=== PATIENT | female | born 1935 | race Caucasian/White ===

== ENCOUNTER 2017-05-28 15:59 | Emergency (ER) | payer BC, MEDICARE, OTHER ==
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
--- NOTE | 2017-05-28 17:28 | RAD ---
INDICATION: Intracranial injury COMPARISON: None TECHNIQUE: Noncontrast axial source images were acquired from the skull base to the vertex. FINDINGS: Ventricles/sulci: The ventricles and cisterns are normal in size and configuration for age. Brain parenchyma: There is no focal parenchymal finding, evidence of intracranial mass, or intracranial mass effect. INDICATION: Intracranial injury COMPARISON: CT brain March 31, 2012 TECHNIQUE: Noncontrast axial source images were acquired from the skull base to the vertex. FINDINGS: Ventricles/sulci: The ventricles and cisterns are normal in size and configuration for age. Brain parenchyma: There is no focal parenchymal finding, evidence of intracranial mass, or intracranial mass effect. Intracranial hemorrhage:None. Extra-axial spaces: There are no abnormal extra axial fluid collections or evidence of extra-axial mass. Calvarium: There is no calvarial fracture or other calvarial abnormality. Scalp: There is no evidence of scalp or extracalvarial soft tissue abnormality. Paranasal sinuses/mastoid: The paranasal sinuses and mastoid air cells are clear. Other: None. IMPRESSION: NEGATIVE EXAMINATION
--- NOTE | 2017-05-28 17:35 | RAD ---
INDICATION: Neck injury. History of chronic neck pain. COMPARISON: Cervical spine August 11, 2011 TECHNIQUE: Noncontrast axial source images was performed from the skull base to the thoracic inlet. Coronal and and sagittal reformatted images were generated. FINDINGS: Vertebrae: There is no fracture or acute focal bony lesion. There are arthritic changes with advanced degenerative disc disease from C4 through C7. Similar findings were present on earlier radiographs. There is endplate sclerosis and marginal osteophyte formation and multilevel facet arthropathy. Alignment: There is reversal normal cervical lordosis with 2 to 3 mm anterolistheses of C2 on C3 and C3 on C4. These were also present previously. There is a scoliotic deformity of the upper thoracic spine. Central Canal: There are no significant CT abnormalities of the central canal or foramina. MR imaging is a more sensitive method to evaluate the canal and foramina. Intervertebral disc spaces: The disc spaces are maintained. Brain: The visualized brain appears unremarkable. Soft tissues: The visualized soft tissue elements of the neck are unremarkable. The prevertebral soft tissues appear normal. The lung apices are clear. IMPRESSION: ADVANCED MULTILEVEL DEGENERATIVE DISC DISEASE WITH REVERSAL OF THE NORMAL CERVICAL LORDOSIS. THESE FINDINGS APPEAR CHRONIC
[2017-05-28] MEDS ORDERED: Acetaminophen TAB* 325 MG PO ONE (17:55)
[2017-05-28 18:19] VITALS: BP 130/69
== END 2017-05-28 18:21 | disposition home or self-care (01) ==
LOC: ED 15:59
DX: S16.1XXA Strain of muscle, fascia and tendon at neck level, initial encounter (principal); M54.2 Cervicalgia; M50.30 Other cervical disc degeneration, unspecified cervical region; R51 Headache; Z87.891 Personal history of nicotine dependence; M62.838 Other muscle spasm; V49.9XXA Car occupant (driver) (passenger) injured in unspecified traffic accident, initial encounter; Y93.9 Activity, unspecified; Y92.89 Other specified places as the place of occurrence of the external cause
CPT/HCPCS: 70450; 72125; 99282

== ENCOUNTER 2018-04-16 09:37 | Emergency (ER) | payer MEDICARE, BC ==
[2018-04-16] MEDS ORDERED: NS 0.9% 1000 ML* 1,000 ML IV ONE (10:40)
[2018-04-16 11:27] LABS: INR 0.94 (0.77-1.02)
[2018-04-16 11:33] LABS: ABS Basophils 0 10^3/ul (0-0.2); ABS Eosinophils 0 10^3/ul (0-0.6); ABS Lymphocytes 0.8 10^3/ul (1.0-4.8); ABS Monocytes 0.4 10^3/ul (0-0.8); ABS Neutrophils 4.9 10^3/ul (1.5-7.7); ABS Nucleated RBC 0 10^3/ul; Eosinophil % 0.2 % (0-6); Hematocrit 41 % (35-47); Lymphocyte % 13.6 % (25-47); Mean Corpuscular HGB Conc 34 g/dl (31-36); Mean Corpuscular Hemoglobin 33 pg (27-31); Mean Corpuscular Volume 98 fL (80-97); Mean Platelet Volume 7.9 um3 (7.4-10.4); Nucleated Red Blood Cells % 0.1; Platelet Count 227 10^3/ul (150-450); Red Blood Count 4.21 10^6/ul (4.00-5.40); Red Cell Distribution Width 13 % (10.5-15); White Blood Count 6.2 10^3/ul (3.5-10.8)
[2018-04-16 11:35] LABS: EGFR Non-African American 84.3 (>60)
[2018-04-16] MEDS ORDERED: Iohexol 300* (CONTRAST) 10 ML SDV IV ONE (13:00)
--- NOTE | 2018-04-16 13:13 | RAD ---
CLINICAL HISTORY: early satiety,mid abd pain,diarrhea COMPARISON: January 13, 2013 TECHNIQUE: Multiple contiguous axial CT scans were obtained of the abdomen and pelvis after the administration of intravenous contrast. Coronal and sagittal multiplanar reformations are submitted for review. FINDINGS: LUNG BASES: The lung bases are clear. LIVER: The liver is diffusely low in attenuation compared to the spleen. There are no focal hepatic parenchymal masses. Again noted is a hepatic cyst within the inferior margin of the left lobe of liver. BILE DUCTS: There is no intrahepatic or extrahepatic biliary dilatation. GALLBLADDER: The gallbladder is not visualized. Surgical clips are noted in the gallbladder fossa.. PANCREAS: The pancreas is normal, without mass or ductal dilatation. SPLEEN: Normal in size and appearance. UPPER GI TRACT: Evaluation of the gastrointestinal tract is limited by incomplete gastric distention. There is a 2 cm diverticulum of the second stage of the duodenum. There is a small sliding hiatal hernia with questionable mucosal thickening of the cardia of the stomach. SMALL BOWEL AND MESENTERY: The small bowel is normal in contour, course, and caliber. There is no obstruction or dilatation. COLON: There is extensive diverticulosis throughout the entire colon. ADRENALS: Normal bilaterally. KIDNEYS: The kidneys are normal in shape, size, contour, and axis. There is no hydronephrosis or nephrolithiasis. BLADDER: The bladder is smooth in contour. PELVIC ORGANS: The uterus and adnexa are grossly normal for technique. AORTA: There is calcific atherosclerotic disease of the abdominal aorta and its branches, without aneurysmal dilatation IVC: Unremarkable LYMPH NODES: There is no lymphadenopathy by size criteria. ABDOMINAL WALL: There is no evidence for abdominal wall hernia. BONES AND SOFT TISSUES: There is a scoliotic curvature of the spine. Degenerative changes are noted. OTHER: None IMPRESSION: 1. THERE IS MUCOSAL THICKENING OF THE CARDIA OF THE STOMACH. THIS MAY BE AN ARTIFACT OF INCOMPLETE DISTENTION, THOUGH MUCOSAL NEOPLASM MAY GIVE A SIMILAR APPEARANCE. RECOMMEND CONSIDERATION OF CORRELATION WITH DIRECT VISUALIZATION. 2. SLIDING HIATAL HERNIA. 3. DIVERTICULUM OF THE SECOND STAGE OF THE DUODENUM. 4. EXTENSIVE COLONIC DIVERTICULOSIS THROUGHOUT THE ENTIRE COLON
[2018-04-16 13:16] LABS: Urine Appearance Clear; Urine Blood Negative (Negative); Urine Color Yellow; Urine Ketones Negative (Negative); Urine Protein Negative (Negative); Urine Specific Gravity 1.004 (1.010-1.030); Urine Urobilinogen Negative (Negative)
--- NOTE | 2018-04-16 15:06 | ED ---
Ricardo Rea Jade, scribed for Juvenal Fairbanks MD on 04/16/18 at 1033 . Dizziness - HPI Summary HPI Summary: Pt is an 82 y/o female sent from the c/o dizziness. She states she has been feeling dizzy and lightheaded since 4-5 days ago when she was in [place], and recognizes her dizziness could be due to the altitude change. Pt also complains of thirst, stating her mouth feels dry, decreased appetite, and some diarrhea. Pt denies any CP, nausea, runny nose, sore throat, headache, cough, chest congestion, room spinning sensation, hematochezia, or abdominal pain. Pt has had low potassium for a while, and had a blood test 2 weeks ago that revealed high potassium. Over the past 5 months, the pt has lost 10 lbs due to decreased appetite. Pt has chronic numbness and weakness of her ankles and toes dues to sciatic nerve pain, but denies any new numbness or weakness. PMHx sciatic nerve pain, AFib, gallbladder surgery, and hypothyroidism. - History Of Current Complaint Chief Complaint: EDDizziness Stated Complaint: DIZZINESS Time Seen by Provider: 04/16/18 10:10 Hx Obtained From: Patient Onset/Duration: Gradually - 4-5 days ago Timing: Constant Character: Room Spinning, Lightheaded Alleviating Factor(s): Nothing Associated Signs And Symptoms: Positive: Diarrhea, Decreased Oral Intake. Negative: Nausea, Chest Pain - Allergies/Home Medications Allergies/Adverse Reactions: Allergies Allergy/AdvReac Type Severity Reaction Status Date / Time ciprofloxacin [From Cipro] Allergy Unknown Verified 04/16/18 09:49 Reaction Details latex Allergy Rash Verified 04/16/18 09:49 sulfamethoxazole Allergy Shakes Verified 04/16/18 09:49 [From Bactrim] trimethoprim [From Bactrim] Allergy Shakes Verified 04/16/18 09:49 Home Medications: Home Medications Ascorbic Acid TAB* [Vitamin C TAB*] 500 mg PO DAILY 04/16/18 [History Confirmed 04/16/18] Aspirin EC TAB* [Ecotrin EC Low Dose 81 MG*] 81 mg PO DAILY 04/16/18 [History Confirmed 04/16/18] L. Rhamnosus GG/Inulin [Culturelle Probiotics Capsule] 1 cap PO QPM 04/16/18 [ History Confirmed 04/16/18] Levothyroxine TAB* [Synthroid TAB*] 25 mcg PO DAILY 04/16/18 [History Confirmed 04/16/18] Magnesium Oxide TAB* [MagOx 400 TAB*] 250 mg PO DAILY 04/16/18 [History Confirmed 04/16/18] Multivitamins/Minerals TAB* [Theragran/minerals TAB*] 1 tab PO DAILY 04/16/18 [ History Confirmed 04/16/18] West-3 Fatty Acids (Nf) [Fish Oil (NF)] 1,000 mg PO DAILY 04/16/18 [History Confirmed 04/16/18] Zolpidem TAB* [Ambien TAB*] 2.5 mg PO BEDTIME PRN 04/16/18 [History Confirmed ] PMH/Surg Hx/FS Hx/Imm Hx Endocrine/Hematology History: Reports: Hx Thyroid Disease - Hypothyroidism Denies: Hx Anticoagulant Therapy - ASA daily, Hx Diabetes, Hx Anemia Cardiovascular History: Reports: Hx Atrial Fibrillation, Other Cardiovascular Problems/Disorders - ATRIAL FIBRILLATION GI History: Denies: Hx Jaundice Musculoskeletal History: Reports: Hx Arthritis - cervical spine - in PT and receives massage therapy Denies: Hx Rheumatoid Arthritis, Hx Osteoporosis, Hx Scoliosis Neurological History: Reports: Other Neuro Impairments/Disorders - Sciatic nerve pain Denies: Hx Headaches - Cancer History Hx Chemotherapy: No Hx Radiation Therapy: No - Surgical History Surgery Procedure, Year, and Place: lap remedios; dental implants; cardiac ablasion ; loop monitor Infectious Disease History: No Infectious Disease History: Reports: Traveled Outside the [place] in Last 30 Days - ALDO Denies: Hx Clostridium Difficile, Hx Hepatitis, Hx Human Immunodeficiency Virus (HIV), Hx of Known/Suspected MRSA, Hx Shingles, Hx Tuberculosis, Hx Known/ Suspected VRE, Hx Known/Suspected VRSA, History Other Infectious Disease - Family History Known Family History: Negative: Hypertension, Diabetes - Social History Alcohol Use: Occasionally Hx Substance Use: No Substance Use Type: Reports: None Hx Tobacco Use: Yes Smoking Status (MU): Former Smoker Type: Cigarettes Have You Smoked in the Last Year: No Review of Systems Positive: Other - Thirsty ENT: Other - NEGATIVE: chest congestion, runny nose Negative: Sore Throat Negative: Chest Pain Negative: Cough Gastrointestinal: Other - NEGATIVE: hematochezia Positive: Diarrhea, Other - Decreased appetite. Negative: Abdominal Pain, Nausea Neurological: Other - Dizziness, lightheadedness; NEGATIVE: room spinning Positive: Weakness - Chronic - toes and ankles, Numbness - Chronic - toes and ankles. Negative: Headache All Other Systems Reviewed And Are Negative: Yes Physical Exam - Summary Physical Exam Summary: General: well-appearing, no pain distress Skin: warm, color reflects adequate perfusion, dry Head: normal Eyes: EOMI, JAYNE ENT: normal Neck: supple, nontender Respiratory: CTA, breath sounds present Cardiovascular: RRR Abdomen: soft, mild mid-abdominal tenderness Bowel: present Musculoskeletal: normal, strength/ROM intact Neurological: sensory/motor intact, A&O x3 Psychological: affect/mood appropriate Triage Information Reviewed: Yes Vital Signs On Initial Exam: Initial Vitals Temp Pulse Resp BP Pulse Ox 98.5 F 83 16 132/79 99 04/16/18 09:49 04/16/18 09:49 04/16/18 09:49 04/16/18 09:49 04/16/18 09:49 Vital Signs Reviewed: Yes Diagnostics - Vital Signs Vital Signs Temp Pulse Resp BP Pulse Ox 04/16/18 10:14 79 22 123/91 99 04/16/18 09:49 98.5 F 83 16 132/79 99 - Laboratory Lab Results: Lab Results 04/16/18 04/16/18 04/16/18 Range/Units 10:58 10:58 10:58 WBC 6.2 (3.5-10.8) 10^3/ul RBC 4.21 (4.00-5.40) 10^6/ul Hgb 14.0 (12.0-16.0) g/dl Hct 41 (35-47) % MCV 98 H (80-97) fL MCH 33 H (27-31) pg MCHC 34 (31-36) g/dl RDW 13 (10.5-15) % Plt Count 227 (150-450) 10^3/ul MPV 7.9 (7.4-10.4) um3 Neut % (Auto) 79.3 (38-83) % Lymph % (Auto) 13.6 L (25-47) % Dukes % (Auto) 6.2 (0-7) % Eos % (Auto) 0.2 (0-6) % Baso % (Auto) 0.7 (0-2) % Absolute Neuts (auto) 4.9 (1.5-7.7) 10^3/ul Absolute Lymphs (auto) 0.8 L (1.0-4.8) 10^3/ul Absolute Monos (auto) 0.4 (0-0.8) 10^3/ul Absolute Eos (auto) 0 (0-0.6) 10^3/ul Absolute Basos (auto) 0 (0-0.2) 10^3/ul Absolute Nucleated RBC 0 10^3/ul Nucleated RBC % 0.1 INR (Anticoag Therapy) 0.94 (0.77-1.02) APTT 29.5 (26.0-36.3) seconds D-Dimer, Quantitative < 200 (Less Than 230) ng/mL Sodium 140 (135-145) mmol/L Potassium 4.2 (3.5-5.0) mmol/L Chloride 104 (101-111) mmol/L Carbon Dioxide 28 (22-32) mmol/L Anion Gap 8 (2-11) mmol/L BUN 13 (6-24) mg/dL Creatinine 0.67 (0.51-0.95) mg/dL Est GFR ( Amer) 102.0 (>60) Est GFR (Non-Af Amer) 84.3 (>60) BUN/Creatinine Ratio 19.4 (8-20) Glucose 111 H (70-100) mg/dL Lactic Acid (0.5-2.0) mmol/L Calcium 9.7 (8.6-10.3) mg/dL Magnesium 2.0 (1.9-2.7) mg/dL Total Bilirubin 0.80 (0.2-1.0) mg/dL AST 23 (13-39) U/L ALT 17 (7-52) U/L Alkaline Phosphatase 44 (34-104) U/L Total Creatine Kinase 112 (10-223) U/L CK-MB (CK-2) 3.5 (0.6-6.3) ng/mL Troponin I 0.00 (<0.04) ng/mL C-Reactive Protein 4.01 (<8.01) mg/L B-Natriuretic Peptide ( - 100) pg/mL Total Protein 6.8 (6.4-8.9) g/dL Albumin 3.9 (3.2-5.2) g/dL Globulin 2.9 (2-4) g/dL Albumin/Globulin Ratio 1.3 (1-3) Lipase 32 (11.0-82.0) U/L TSH 2.22 (0.34-5.60) mcIU/mL Urine Color Urine Appearance Urine pH (5-9) Ur Specific [place] (1.010-1.030) Urine Protein (Negative) Urine Ketones (Negative) Urine Blood (Negative) Urine Nitrate (Negative) Urine Bilirubin (Negative) Urine Urobilinogen (Negative) Ur Leukocyte Esterase (Negative) Urine WBC (Auto) (Absent) Urine RBC (Auto) (Absent) Ur Squamous Epith Cells (Absent) Urine Bacteria (Absent) Urine Glucose (Negative) Urine Ascorbic Acid (Negative) 04/16/18 04/16/18 04/16/18 Range/Units 10:58 10:58 12:46 WBC (3.5-10.8) 10^3/ul RBC (4.00-5.40) 10^6/ul Hgb (12.0-16.0) g/dl Hct (35-47) % MCV (80-97) fL MCH (27-31) pg MCHC (31-36) g/dl RDW (10.5-15) % Plt Count (150-450) 10^3/ul MPV (7.4-10.4) um3 Neut % (Auto) (38-83) % Lymph % (Auto) (25-47) % Dukes % (Auto) (0-7) % Eos % (Auto) (0-6) % Baso % (Auto) (0-2) % Absolute Neuts (auto) (1.5-7.7) 10^3/ul Absolute Lymphs (auto) (1.0-4.8) 10^3/ul Absolute Monos (auto) (0-0.8) 10^3/ul Absolute Eos (auto) (0-0.6) 10^3/ul Absolute Basos (auto) (0-0.2) 10^3/ul Absolute Nucleated RBC 10^3/ul Nucleated RBC % INR (Anticoag Therapy) (0.77-1.02) APTT (26.0-36.3) seconds D-Dimer, Quantitative (Less Than 230) ng/mL Sodium (135-145) mmol/L Potassium (3.5-5.0) mmol/L Chloride (101-111) mmol/L Carbon Dioxide (22-32) mmol/L Anion Gap (2-11) mmol/L BUN (6-24) mg/dL Creatinine (0.51-0.95) mg/dL Est GFR ( Amer) (>60) Est GFR (Non-Af Amer) (>60) BUN/Creatinine Ratio (8-20) Glucose (70-100) mg/dL Lactic Acid 1.9 (0.5-2.0) mmol/L Calcium (8.6-10.3) mg/dL Magnesium (1.9-2.7) mg/dL Total Bilirubin (0.2-1.0) mg/dL AST (13-39) U/L ALT (7-52) U/L Alkaline Phosphatase (34-104) U/L Total Creatine Kinase (10-223) U/L CK-MB (CK-2) (0.6-6.3) ng/mL Troponin I (<0.04) ng/mL C-Reactive Protein (<8.01) mg/L B-Natriuretic Peptide 23 ( - 100) pg/mL Total Protein (6.4-8.9) g/dL Albumin (3.2-5.2) g/dL Globulin (2-4) g/dL Albumin/Globulin Ratio (1-3) Lipase (11.0-82.0) U/L TSH (0.34-5.60) mcIU/mL Urine Color Yellow Urine Appearance Clear Urine pH 8.0 (5-9) Ur Specific [place] 1.004 L (1.010-1.030) Urine Protein Negative (Negative) Urine Ketones Negative (Negative) Urine Blood Negative (Negative) Urine Nitrate Negative (Negative) Urine Bilirubin Negative (Negative) Urine Urobilinogen Negative (Negative) Ur Leukocyte Esterase 3+ A (Negative) Urine WBC (Auto) 2+(11-20/hpf) A (Absent) Urine RBC (Auto) Trace(0-2/hpf) (Absent) Ur Squamous Epith Cells Present A (Absent) Urine Bacteria Absent (Absent) Urine Glucose Negative (Negative) Urine Ascorbic Acid * A (Negative) Result Diagrams: 04/16/18 10:58 04/16/18 10:58 Lab Statement: Any lab studies that have been ordered have been reviewed, and results considered in the medical decision making process. - CT Abd/Pel CT CT Interpretation: Positive (See Comments) - 10:43L 1. THERE IS MUCOSAL THICKENING OF THE CARDIA OF THE STOMACH. THIS MAY BE AN ARTIFACT OF INCOMPLETE DISTENTION, THOUGH MUCOSAL NEOPLASM MAY GIVE A SIMILAR APPEARANCE. RECOMMEND CONSIDERATION OF CORRELATION WITH DIRECT VISUALIZATION. 2. SLIDING HIATAL HERNIA. 3. DIVERTICULUM OF THE SECOND STAGE OF THE DUODENUM. ED physician reviewed radiology report. CT Interpretation Completed By: Radiologist Dizzy Course/Dx - Course Course Of Treatment: DISCUSSED RESULTS WITH THE PATIENT. DIZZINESS IS NOT SPINNING, IT IS MORE LIGHTHEADEDNESS. NO UTI SX; WILL AWAIT URINE CX AND F/U PMD. CT RESULTS DISCUSSED WITH [facility] TO FACILITATE F/U TO EVALUATE STOMACH WALL THICKENING. WILL RETURN TO ED IF WORSE. - Diagnoses Provider Diagnoses: Dizziness, Abdominal pain, Gastric wall thickening Discharge - Sign-Out/Discharge Documenting (check all that apply): Discharge/Admit/Transfer - Discharge - Discharge Plan Condition: Stable Disposition: HOME Patient Education Materials: Abdominal Pain (ED), Dizziness (ED) Referrals: Cristobal Baca MD [Primary Care Provider] - Additional Instructions: FOLLOW UP WITH YOUR PRIMARY CARE DOCTOR AND [facility] FOR YOUR DIZZINESS AND THICKENED STOMACH WALL. GET RECHECKED FOR ANY WORSENING OF YOUR CONDITION; PAIN, FEVER, YOU FEEL ILL OR QUESTIONS OR CONCERNS. - Billing Disposition and Condition Condition: STABLE Disposition: Home The documentation as recorded by the Ricardo nieves Jade accurately reflects the service I personally performed and the decisions made by me, Juvenal Fairbanks MD.
[2018-04-16 15:28] VITALS: BP 136/74
== END 2018-04-16 15:30 | disposition home or self-care (01) ==
LOC: ED 09:37
DX: R42 Dizziness and giddiness (principal); Z88.1 Allergy status to other antibiotic agents; K31.89 Other diseases of stomach and duodenum; R19.7 Diarrhea, unspecified; Z86.39 Personal history of other endocrine, nutritional and metabolic disease; Z87.891 Personal history of nicotine dependence; R10.9 Unspecified abdominal pain; I10 Essential (primary) hypertension; I15.9 Secondary hypertension, unspecified; Z79.82 Long term (current) use of aspirin; Z88.2 Allergy status to sulfonamides; Z91.040 Latex allergy status
CPT/HCPCS: 36415; 74177; 80053; 81003; 81015; 82550; 82553; 83605; 83690; 83735; 83880; 84443; 84484; 85025; 85379; 85610; 85730; 86140; 87086; 99283; Q9967